=== PATIENT | female | born 1945 | race Caucasian/White ===

== ENCOUNTER 2022-10-04 16:09 | Emergency (ER) | payer MEDICARE, MEDICAID ==
[~2022-10-04] VITALS: Ht 152.4 cm; Wt 70.5 kg
[~2022-10-04 16:09] MED LIST: CAND16TA28 PO; CAND1TAB14 PO; CLOP-31 PO; METO-396 PO; NORT10CA PO; PROP80CA58 PO
[2022-10-04 16:16] VITALS: BP 159/84
[2022-10-04 16:55] LABS: BASOPHILS % 0.5 % (0.0-2.0); EOSINOPHILS % 2.3 % (0.0-5.0); HEMATOCRIT. 42.3 % (36.0-48.0); HEMOGLOBIN. 14.5 g/dL (12.0-16.0); LYMPHOCYTES % 26.2 % (20.0-50.0); MEAN CORPUSCULAR HEMOGLOBIN 31.4 pg (28.0-32.0); MEAN CORPUSCULAR VOLUME 91.7 fL (81.0-99.0); MEAN PLATELET VOLUME 8.2 fl (7.4-10.4); MONOCYTES % 14.6 % (2.0-8.0); NEUTROPHILS % 56.4 % (40.0-76.0); PLATELET 254 x1000/uL (130-400); RED BLOOD CELL COUNT 4.61 mill/uL (4.2-5.4); RED CELL DISTRIBUTION WIDTH 14.2 % (11.6-14.6)
[2022-10-04 17:03] LABS: CHLORIDE 102 mEq/L (98-107)
[2022-10-04 17:15] LABS: CLARITY URINE CLEAR (CLEAR); COLOR URINE YELLOW (YELLOW); KETONES URINE NEGATIVE (NEGATIVE); LEUKOCYTE ESTERASE URINE 1+ (NEGATIVE); NITRITE URINE NEGATIVE (NEGATIVE); OCCULT BLOOD URINE 3+ (NEGATIVE); PH URINE 7.5 (4.5-8.0); PROTEIN URINE NEGATIVE (NEGATIVE); SPECIFIC GRAVITY URINE 1.012 (1.005-1.030); UROBILINOGEN URINE 0.2 E.U./dL (0.2-1.0)
[2022-10-04] MEDS ORDERED: GABA100C MT (19:04)
== END 2022-10-04 19:36 | disposition home or self-care (01) ==
LOC: ER 16:09
DX: N93.8 Other specified abnormal uterine and vaginal bleeding (principal); G62.9 Polyneuropathy, unspecified; K21.9 Gastro-esophageal reflux disease without esophagitis; I10 Essential (primary) hypertension; Z86.73 Personal history of transient ischemic attack (TIA), and cerebral infarction without residual deficits
CPT/HCPCS: 36415; 76830; 76856; 80053; 81003; 85025; 86850; 86900; 99284

== ENCOUNTER 2022-12-30 10:18 | Emergency (ER) | payer OTHER, MEDICARE, MEDICAID ==
[~2022-12-30] VITALS: Ht 152.4 cm; Wt 72.7 kg
[~2022-12-30 10:18] MED LIST changes: +GABA100C MT
[2022-12-30 10:28] VITALS: BP 150/69; PULSE 95; RESP 16; O2SAT 98
[2022-12-30 10:45] VITALS: TEMP 98.7
[2022-12-30] MEDS ORDERED: ACETAMINOPHEN 325MG TABLET PO STA (10:45)
[2022-12-30 12:26] LABS: BASOPHILS % 0.8 % (0.0-2.0); EOSINOPHILS % 5.6 % (0.0-5.0); HEMATOCRIT. 41.5 % (36.0-48.0); HEMOGLOBIN. 14.1 g/dL (12.0-16.0); LYMPHOCYTES % 30.1 % (20.0-50.0); MEAN CORPUSCULAR HEMOGLOBIN 31.6 pg (28.0-32.0); MEAN CORPUSCULAR VOLUME 93.3 fL (81.0-99.0); MONOCYTES % 14.7 % (2.0-8.0); NEUTROPHILS % 48.8 % (40.0-76.0); PLATELET 279 x1000/uL (130-400); RED BLOOD CELL COUNT 4.45 mill/uL (4.2-5.4)
[2022-12-30 12:32] LABS: CLARITY URINE CLEAR (CLEAR); COLOR URINE YELLOW (YELLOW); KETONES URINE NEGATIVE (NEGATIVE); LEUKOCYTE ESTERASE URINE TRACE (NEGATIVE); NITRITE URINE NEGATIVE (NEGATIVE); OCCULT BLOOD URINE TRACE (NEGATIVE); PH URINE 7.5 (4.5-8.0); PROTEIN URINE NEGATIVE (NEGATIVE); UROBILINOGEN URINE 0.2 E.U./dL (0.2-1.0)
[2022-12-30 12:37] LABS: CHLORIDE 104 mEq/L (98-107)
[2022-12-30] MEDS ORDERED: GABA-532 PO (13:05)
[2022-12-30] MEDS ORDERED: ACET-2502 PO (13:05)
== END 2022-12-30 13:33 | disposition home or self-care (01) ==
LOC: ER 10:18
DX: M54.41 Lumbago with sciatica, right side (principal); M16.11 Unilateral primary osteoarthritis, right hip; I10 Essential (primary) hypertension; Z88.2 Allergy status to sulfonamides
CPT/HCPCS: 36415; 72100; 73502; 80053; 81003; 85025; 99284

== ENCOUNTER 2024-06-17 10:58 | Emergency (ER) | payer MEDICARE, OTHER ==
[~2024-06-17] VITALS: Ht 152.4 cm; Wt 72.5 kg
[~2024-06-17 10:58] MED LIST changes: +ACET-2502 PO; +GABA-1180 PO
[2024-06-17 11:06] VITALS: TEMP 98.2; O2SAT 98
[2024-06-17] MEDS ORDERED: GUAI400T93 MT (12:51)
[2024-06-17] MEDS ORDERED: ACET-2708 MT (12:51)
[2024-06-17 13:54] VITALS: BP 160/84; PULSE 90; RESP 16; O2SAT 99
== END 2024-06-17 13:56 | disposition home or self-care (01) ==
LOC: ER 12:05
DX: R05.9 Cough, unspecified (principal); E11.9 Type 2 diabetes mellitus without complications; I10 Essential (primary) hypertension; K21.9 Gastro-esophageal reflux disease without esophagitis; Z79.899 Other long term (current) drug therapy; Z86.73 Personal history of transient ischemic attack (TIA), and cerebral infarction without residual deficits; Z96.659 Presence of unspecified artificial knee joint; Z88.2 Allergy status to sulfonamides
CPT/HCPCS: 71045; 87070; 87430; 87804; 99284

== ENCOUNTER 2025-03-14 10:53 | Emergency (ER) | payer MEDICARE ==
[~2025-03-14] VITALS: Ht 152.4 cm; Wt 73.0 kg
[~2025-03-14 10:53] MED LIST changes: +ACET-2708 MT; +GUAI400T93 MT
[2025-03-14 11:10] VITALS: O2SAT 98
[2025-03-14 13:00] VITALS: BP 147/71; PULSE 68; RESP 18; TEMP 36.8; O2SAT 98
== END 2025-03-14 13:12 | disposition home or self-care (01) ==
LOC: ER 10:53
DX: R22.41 Localized swelling, mass and lump, right lower limb (principal); I10 Essential (primary) hypertension; E11.9 Type 2 diabetes mellitus without complications; Z86.73 Personal history of transient ischemic attack (TIA), and cerebral infarction without residual deficits; Z87.01 Personal history of pneumonia (recurrent); Z88.2 Allergy status to sulfonamides; Z79.899 Other long term (current) drug therapy
CPT/HCPCS: 93970; 99284